=== PATIENT | female | born 1980 | race Caucasian/White ===

== ENCOUNTER 2017-07-18 12:51 | Emergency (ER) | payer BC ==
[2017-07-18 14:11] VITALS: BP 111/64
--- NOTE | 2017-07-18 14:15 | UC ---
Lower Extremity/Ankle HPI - HPI Summary HPI Summary: Pt presents with left foot pain. She tells me that her pain is located on the dorsal aspect of her left midfoot. This pain has been gradually increasing over the last 3-4 weeks. She is an avid runner and runs at least 3 times per week. She denies specific injury. Has been icing her foot with minimal relief. Denies redness, swelling, or previous injury to the area. - History of Current Complaint Chief Complaint: UCLowerExtremity Stated Complaint: LEFT FOOT INJURY Time Seen by Provider: 07/18/17 14:13 Hx Obtained From: Patient Hx Last Menstrual Period: 2 weeks ago ?: No Onset/Duration: Gradual Onset Severity Initially: Mild Severity Currently: Mild Pain Intensity: 2 Pain Scale Used: 0-10 Numeric Aggravating Factor(s): Ambulation Alleviating Factor(s): Rest Able to Bear Weight: Yes - Allergies/Home Medications Allergies/Adverse Reactions: Allergies Allergy/AdvReac Type Severity Reaction Status Date / Time Adhesive Tape Allergy Mild Rash Verified 07/18/17 14:12 Cefoxitin [From Mefoxin] Allergy Mild Rash Verified 07/18/17 14:12 Home Medications: Home Medications Congolese Herbs 07/18/17 [History] Methimazole TAB* [Tapazole TAB*] 5 mg PO DAILY 07/18/17 [History Confirmed 07/18] Mobile-3 Fatty Acids [Fish Oil] 1 dose PO DAILY 07/18/17 [History Confirmed 07/18] PMH/Surg Hx/FS Hx/Imm Hx Previously Healthy: Yes - Surgical History Surgical History: Yes Surgery Procedure, Year, and Place: appendenctomy. wisdom teeth - Social History Alcohol Use: Rare Substance Use Type: None Smoking Status (MU): Never Smoked Tobacco - Immunization History Most Recent Influenza Vaccination: 05/11/14 Most Recent Tetanus Shot: 04/18/14 Most Recent Pneumonia Vaccination: none Review of Systems Constitutional: Negative Skin: Negative Motor: Negative Neurovascular: Negative Musculoskeletal: Other: - Pain left midfoot Neurological: Negative All Other Systems Reviewed And Are Negative: Yes Physical Exam Triage Information Reviewed: Yes Appearance: Well-Appearing, Well-Nourished Vital Signs: Initial Vital Signs Temp 96.8 F 07/18/17 14:08 Pulse 58 07/18/17 14:08 Resp 16 07/18/17 14:08 BP 111/64 07/18/17 14:08 Pulse Ox 100 07/18/17 14:08 Vital Signs Reviewed: Yes Musculoskeletal: Positive: Strength Intact - Left ankle and foot., ROM Intact - Left ankle, foot, and all digits., No Edema, Other: - TTP over left dorsal midfoot - generalized with no specific point tenderness. Neurological: Positive: Alert, Other: - Sensations intact left foot and all digits. Psychological: Positive: Age Appropriate Behavior Skin: Negative: rashes, significant lesion(s) Lower Extremity Course/Dx - Course Course Of Treatment: XR: The adequately corticated bones are properly aligned. Joint spaces appear maintained. No fracture, dislocation or focal bony abnormality is seen. ERIBERTO wrap foot. Ibuprofen and continue icing foot. No running 1 week. F/u with sports med if symptoms persist - Differential Dx/Diagnosis Differential Diagnosis/HQI/PQRI: Contusion, Fracture (Closed), Sprain, Strain, Tendonitis Provider Diagnoses: Left foot tendonitis Discharge - Discharge Plan Condition: Stable Disposition: HOME Patient Education Materials: Foot Sprain (ED) Referrals: No Primary Care Phys,NOPCP [Primary Care Provider] - Osiel Lynn [Medical Doctor] - Additional Instructions: 1) Rest, Ice, wrap, and elevate your foot. 2) Rest from running for 1 week to see if your symptoms improve. Please call Dr. Lynn at the number below to schedule a follow up appointment if symptoms persist or worsen. If you develop a fever, SOB, chest pain, new or worsening symptoms - please call your PCP or go to the ED.
--- NOTE | 2017-07-18 14:44 | RAD ---
INDICATION: Dorsal foot pain in a runner. COMPARISON: None. TECHNIQUE: 3 views of the left foot were obtained. FINDINGS: The adequately corticated bones are properly aligned. Joint spaces appear maintained. No fracture, dislocation or focal bony abnormality is seen. IMPRESSION: Normal radiograph of the left foot. If the patient's symptoms persist, follow-up imaging is recommended.
== END 2017-07-18 15:14 | disposition home or self-care (01) ==
LOC: UCEAST 12:51
DX: M77.52 Other enthesopathy of left foot and ankle (principal); Y93.02 Activity, running; Y92.9 Unspecified place or not applicable
CPT/HCPCS: 99212; G0463

== ENCOUNTER 2018-11-07 16:22 | Emergency (ER) | payer BC ==
[2018-11-07 16:33] VITALS: BP 124/69
--- NOTE | 2018-11-07 16:56 | UC ---
Palpitation/Dysrhythmia HP - HPI Summary HPI Summary: 38-year-old woman comes in with a chief complaint of a fluttering feeling in left lower anterior chest. She's noticed it intermittently are off for more than a week. Each episode lasts a couple of seconds. It feels like a flutter. It can happen at any time. When the episode occurs as no chest pain there is no shortness of breath is not nauseous is no lightheadedness. Patient does have a history of hyperthyroidism and she's being treated for that. No abdominal pain. - History of Current Complaint Chief Complaint: UCGeneralIllness Stated Complaint: FLUTTERY FEELING IN LOWER RIB CAGE Time Seen by Provider: 11/07/18 16:40 Hx Last Menstrual Period: 10/26/2018 Pain Intensity: 0 - Allergy/Home Medications Allergies/Adverse Reactions: Allergies Allergy/AdvReac Type Severity Reaction Status Date / Time Adhesive Tape Allergy Mild Rash Verified 11/07/18 16:34 cefoxitin Allergy Rash Verified 11/07/18 16:34 Home Medications: Home Medications Cholecalciferol (Vitamin D3) [Vitamin D3] 11/07/18 [History] PMH/Surg Hx/FS Hx/Imm Hx Previously Healthy: Yes Endocrine History: Hyperthyroidism - Surgical History Surgical History: Yes Surgery Procedure, Year, and Place: appendenctomy. wisdom teeth - Family History Known Family History: Positive: None - Social History Alcohol Use: Weekly Substance Use Type: None Smoking Status (MU): Never Smoked Tobacco - Immunization History Most Recent Influenza Vaccination: 05/11/14 Most Recent Tetanus Shot: 04/18/14 Most Recent Pneumonia Vaccination: none Review of Systems All Other Systems Reviewed And Are Negative: Yes Constitutional: Positive: Negative Skin: Positive: Negative Eyes: Positive: Negative ENT: Positive: Negative Respiratory: Positive: Negative Cardiovascular: Positive: Palpitations Gastrointestinal: Positive: Negative Motor: Positive: Negative Neurovascular: Positive: Negative Musculoskeletal: Positive: Negative Neurological: Positive: Negative Psychological: Positive: Negative Is Patient Immunocompromised?: No Physical Exam Triage Information Reviewed: Yes Appearance: Well-Appearing, No Pain Distress, Well-Nourished Vital Signs: Initial Vital Signs Temp 98.1 F 11/07/18 16:28 Pulse 68 11/07/18 16:28 Resp 18 11/07/18 16:28 BP 124/69 11/07/18 16:28 Pulse Ox 100 11/07/18 16:28 Vital Signs Reviewed: Yes Eye Exam: Normal Eyes: Positive: Conjunctiva Clear Neck exam: Normal Neck: Positive: Supple Respiratory: Positive: Chest non-tender, Lungs clear, Normal breath sounds, No respiratory distress Cardiovascular: Positive: RRR Abdomen Description: Positive: Nontender, Soft. Negative: CVA Tenderness (R), CVA Tenderness (L) Bowel Sounds: Positive: Present Musculoskeletal Exam: Normal Musculoskeletal: Positive: Strength Intact, ROM Intact, No Edema, Other: - No calf tenderness Neurological Exam: Normal Neurological: Positive: Alert, Muscle Tone Normal Psychological Exam: Normal Psychological: Positive: Age Appropriate Behavior Skin Exam: Normal Diagnostics - EKG Cardiac Rate: Bradycardia - AT 1705 Cardiac Rhythm: Sinus: Normal - 55 BPM Ectopy: None ST Segment: Normal Palpitations Course/Dx - Course Course Of Treatment: Patient Name: CARLOS ALONZO Medical Record#: [id number]. Ordering Physician: Wojciech Montiel MD Acct.#: [id number]. : 1980 Age: 38 Sex: F Location: [facility]. Exam Date: 11/07/181648 ADM Status: REG ER. Order Information: CHEST PA LAT 2 VWS. Accession Number: [id number]. CPT: 26478. INDICATION: Palpitations. COMPARISON: There are no relevant prior studies available for comparison. TECHNIQUE: Dual-energy PA and lateral views of the chest were obtained. FINDINGS: The heart is within normal limits in size. Mediastinal and hilar contours. appear within normal limits. The lungs are clear. No pleural effusion is present. IMPRESSION: NO EVIDENCE FOR ACTIVE CARDIOPULMONARY DISEASE. . <Electronically signed by Suleiman Mosquera MD in OV> 1708. I discussed the x-ray and EKG with the patient. Patient is asymptomatic the clinic. A CBC CMP TSH and magnesium were all drawn. Plan is to have the patient follow up either with her primary care physician R cardiology for her symptoms. Her possibilities include palpitations or muscle fasciculations or gas movement in the intestines. I discussed with the patient that if she has any worsening of symptoms chest pain shortness of breath feel like he got pass out she needs to go to the emergency department right away. - Differential Dx/Diagnosis Provider Diagnosis: Palpitations Discharge - Sign-Out/Discharge Documenting (check all that apply): Patient Departure All imaging exams completed and their final reports reviewed: Yes - Discharge Plan Condition: Stable Disposition: HOME Patient Education Materials: Heart Palpitations (ED) Referrals: Sirena Sotelo NP [Primary Care Provider] - Maykel Cui MD [Medical Doctor] - Russ Nieto MD [Medical Doctor] - Additional Instructions: FOLLOW UP WITH YOUR DOCTOR AND/OR TIE BUCKER. GET RECHECKED FOR ANY WORSENING OF YOUR CONDITION OR QUESTIONS OR CONCERNS. - Billing Disposition and Condition Condition: STABLE Disposition: Home
[2018-11-08 10:27] LABS: ABS Basophils 0 10^3/ul (0-0.2); ABS Eosinophils 0.1 10^3/ul (0-0.6); ABS Lymphocytes 2.2 10^3/ul (1.0-4.8); ABS Monocytes 0.4 10^3/ul (0-0.8); ABS Neutrophils 3.1 10^3/ul (1.5-7.7); ABS Nucleated RBC 0 10^3/ul; Eosinophil % 1.7 %; Hematocrit 40 % (35-47); Hemoglobin 13.4 g/dl (12.0-16.0); Lymphocyte % 38.3 %; Mean Corpuscular HGB Conc 33 g/dl (31-36); Mean Corpuscular Hemoglobin 29 pg (27-31); Mean Corpuscular Volume 86 fL (80-97); Nucleated Red Blood Cells % 0.1; Platelet Count 284 10^3/ul (150-450); Red Blood Count 4.67 10^6/ul (4.00-5.40); Red Cell Distribution Width 14 % (10.5-15); White Blood Count 5.9 10^3/ul (3.5-10.8)
[2018-11-08 10:53] LABS: TSH (Thyroid Stimulating Horm) 1.31 mcIU/mL (0.34-5.60)
[2018-11-08 11:04] LABS: Albumin 4.5 g/dL (3.2-5.2); Calcium 9.5 mg/dL (8.6-10.3); Magnesium 2.1 mg/dL (1.9-2.7); Potassium 4.2 mmol/L (3.5-5.0); Total Bilirubin 0.3 mg/dL (0.2-1.0)
[2018-11-08 11:10] LABS: BUN/Creatinine Ratio 18.8 (8-20); EGFR African American 116.5 (>60); EGFR Non-African American 96.3 (>60); Globulin 2.3 g/dL (2-4); Total Protein 6.8 g/dL (6.4-8.9)
== END 2018-11-07 18:00 | disposition home or self-care (01) ==
LOC: UCEAST 16:22
DX: R00.2 Palpitations (principal); Z91.09 Other allergy status, other than to drugs and biological substances; Z88.1 Allergy status to other antibiotic agents
CPT/HCPCS: 36415; 71046; 80053; 83735; 84443; 85025; 93005; 99211; G0463